=== PATIENT | female | born 1965 | race Caucasian/White ===

== ENCOUNTER 2017-07-15 14:56 | Inpatient (IN) | payer SELFPAY ==
[~2017-07-15] VITALS: Ht 162.6 cm; Wt 136.7 kg
[2017-07-15] MEDS ORDERED: NITROGLYCERIN OINT 1GM/INCH UDPKT TD ONE (16:30)
[2017-07-15] MEDS ORDERED: ASPIRIN 81MG TABLET PO ONE (16:30)
[2017-07-15] MEDS: MORPHINE SULFATE 4 MG/ML CPJ (NOT FOR IM USE) IV ONE ×2 (16:42→18:50)
[2017-07-15 16:50] LABS: BASOPHILS % 0.2 % (0.0-2.0); EOSINOPHILS % 0.3 % (0.0-5.0); HEMATOCRIT. 48.5 % (36.0-48.0); HEMOGLOBIN. 16.2 g/dL (12.0-16.0); LYMPHOCYTES % 9.7 % (20.0-50.0); MEAN CORPUSCULAR HEMOGLOBIN 30.3 pg (28.0-32.0); MEAN CORPUSCULAR VOLUME 90.9 fL (81.0-99.0); MEAN PLATELET VOLUME 8.5 fl (7.4-10.4); MONOCYTES % 5.9 % (2.0-8.0); NEUTROPHILS % 83.9 % (40.0-76.0); PLATELET 316 x1000/uL (130-400); RED BLOOD CELL COUNT 5.34 mill/uL (4.2-5.4); RED CELL DISTRIBUTION WIDTH 13.5 % (11.6-14.6)
[2017-07-15 16:57] LABS: INR 1.1; PROTHROMBIN TIME 11.7 sec (9.4-11.6)
[2017-07-15 17:02] LABS: CHLORIDE 103 mEq/L (98-107)
[2017-07-15 17:09] LABS: TROPONIN I < 0.02 ng/mL (0.00-0.04)
[2017-07-15 21:55] VITALS: BP 113/59
[2017-07-15 22:10] VITALS: BP 113/59
[2017-07-15] MEDS ORDERED: NABU-88 PO (23:01)
[2017-07-15] MEDS ORDERED: LEVO25TA7 PO (23:01)
[2017-07-15] MEDS ORDERED: SIMV20TA6 PO (23:01)
[2017-07-15] MEDS ORDERED: METO-539 PO (23:01)
[2017-07-15] MEDS ORDERED: METF500T4 PO (23:01)
[2017-07-16] VITALS: BP 110/61
[2017-07-16] MEDS ORDERED: CLONIDINE 0.1MG TABLET PO PRN (00:15)
[2017-07-16] MEDS ORDERED: TEMAZEPAM 15MG CAPSULE PO PRN (00:15)
[2017-07-16] MEDS ORDERED: MAGNESIUM/ALUMINUM HYDROXIDE/SIMETHICONE 30ML UDC PO PRN (00:15)
[2017-07-16] MEDS ORDERED: ACETAMINOPHEN 325MG TABLET PO PRN (00:15)
[2017-07-16] MEDS ORDERED: DEXTROSE 50% WATER 50ML SYRINGE IV PRN (00:15)
[2017-07-16] MEDS ORDERED: DIPHENHYDRAMINE 50MG/ML VIAL IV PRN (00:15)
[2017-07-16] MEDS ORDERED: MORPHINE SULFATE 4 MG/ML CPJ (NOT FOR IM USE) IV PRN (00:15)
[2017-07-16] MEDS ORDERED: ONDANSETRON HCL 4MG/2ML VIAL IV PRN (00:15)
[2017-07-16 04:00] VITALS: BP 112/65
[2017-07-16] MEDS: BLOOD SUGAR DIAGNOSTIC STRIP TEST SCH ×4 (06:30→21:00)
[2017-07-16] MEDS: LEVOTHYROXINE SODIUM 25MCG TABLET PO SCH (06:31)
[2017-07-16] MEDS: INSULIN LISPRO 100 UNITS/ML SUBCUT SCH ×4 (06:34→21:00)
[2017-07-16] MEDS: METFORMIN HCL 500MG TABLET PO SCH ×2 (06:35→18:29)
[2017-07-16] MEDS: SODIUM CHLORIDE 0.9% INJ 3ML FLUSH IVF SCH ×3 (06:35→21:32)
[2017-07-16 07:16] LABS: HDL CHOLESTEROL 53 mg/dL (40-59); LDL CHOLESTEROL 60 mg/dL (5-100); TROPONIN I < 0.02 ng/mL (0.00-0.04)
[2017-07-16 08:00] VITALS: BP 137/67
[2017-07-16] MEDS: ASPIRIN 81MG EC TABLET PO SCH (09:11)
[2017-07-16] MEDS: METOPROLOL TARTRATE 25MG TABLET PO SCH ×2 (09:12→21:32)
[2017-07-16] MEDS: NABUMETONE 500MG TABLET PO SCH (09:58)
[2017-07-16 16:00] VITALS: BP 127/77
[2017-07-16 20:00] VITALS: BP 128/56
[2017-07-17] VITALS: BP 107/49
[2017-07-17 03:44] VITALS: BP 105/48
[2017-07-17] MEDS: LEVOTHYROXINE SODIUM 25MCG TABLET PO SCH (06:08)
[2017-07-17] MEDS: SODIUM CHLORIDE 0.9% INJ 3ML FLUSH IVF SCH (06:12)
[2017-07-17] MEDS: BLOOD SUGAR DIAGNOSTIC STRIP TEST SCH ×2 (06:15→11:45)
[2017-07-17] MEDS: INSULIN LISPRO 100 UNITS/ML SUBCUT SCH ×2 (06:16→12:15)
[2017-07-17] MEDS: METFORMIN HCL 500MG TABLET PO SCH (06:47)
[2017-07-17 07:59] LABS: BASOPHILS % 0.4 % (0.0-2.0); HEMATOCRIT. 40.7 % (36.0-48.0); HEMOGLOBIN. 13.5 g/dL (12.0-16.0); LYMPHOCYTES % 22.7 % (20.0-50.0); MEAN CORPUSCULAR HEMOGLOBIN 30.2 pg (28.0-32.0); MEAN CORPUSCULAR VOLUME 91.2 fL (81.0-99.0); MEAN PLATELET VOLUME 8.6 fl (7.4-10.4); MONOCYTES % 10.5 % (2.0-8.0); NEUTROPHILS % 63.4 % (40.0-76.0); PLATELET 260 x1000/uL (130-400); RED BLOOD CELL COUNT 4.47 mill/uL (4.2-5.4); RED CELL DISTRIBUTION WIDTH 13.7 % (11.6-14.6)
[2017-07-17 08:00] VITALS: BP 146/79
[2017-07-17 08:34] LABS: CHLORIDE 105 mEq/L (98-107)
[2017-07-17 08:46] LABS: TROPONIN I < 0.02 ng/mL (0.00-0.04)
[2017-07-17] MEDS: ASPIRIN 81MG EC TABLET PO SCH (09:56)
[2017-07-17] MEDS: NABUMETONE 500MG TABLET PO SCH (09:56)
[2017-07-17] MEDS: METOPROLOL TARTRATE 25MG TABLET PO SCH (09:56)
[2017-07-17 12:00] VITALS: BP 135/75
[2017-07-17 12:35] VITALS: BP 135/75
== END 2017-07-17 14:00 | disposition home or self-care (01) | DRG 203 ==
LOC: ER 15:35 → 5WST 19:56 → ENRESERV 21:07
PROVIDERS: ADMIT Internal Medicine; ATTEND Internal Medicine
DX: R07.89 Other chest pain (principal); Z68.43 Body mass index [BMI] 50.0-59.9, adult; I10 Essential (primary) hypertension; E66.01 Morbid (severe) obesity due to excess calories; E03.9 Hypothyroidism, unspecified; E11.9 Type 2 diabetes mellitus without complications; E78.00 Pure hypercholesterolemia, unspecified; E78.5 Hyperlipidemia, unspecified; F41.9 Anxiety disorder, unspecified; Z90.49 Acquired absence of other specified parts of digestive tract; Z80.49 Family history of malignant neoplasm of other genital organs; Z79.899 Other long term (current) drug therapy
CPT/HCPCS: 36415; 71045; 80048; 80053; 80061; 82962; 83036; 83880; 84484; 85025; 85610; 93005; 93306; 99285; J2270